=== PATIENT | male | born 1985 | race African-American/Black ===

== ENCOUNTER 2016-08-11 20:55 | Emergency (ER) | payer OTHER ==
[2016-08-11] MEDS ORDERED: FLEXERIL10 MG (21:12)
== END 2016-08-11 23:08 | disposition home or self-care (01) ==
LOC: SED 20:55
DX: S39.012A Strain of muscle, fascia and tendon of lower back, initial encounter (principal); M54.41 Lumbago with sciatica, right side; I10 Essential (primary) hypertension; F17.210 Nicotine dependence, cigarettes, uncomplicated; X58.XXXA Exposure to other specified factors, initial encounter; Y92.009 Unspecified place in unspecified non-institutional (private) residence as the place of occurrence of the external cause
CPT/HCPCS: 96372; 99283; J1885

== ENCOUNTER 2016-09-02 11:45 | Emergency (ER) | payer OTHER ==
[~2016-09-02 11:45] MED LIST: FLEXERIL10 MG
== END 2016-09-02 12:40 | disposition home or self-care (01) ==
LOC: SED 11:45
DX: M54.41 Lumbago with sciatica, right side (principal); I10 Essential (primary) hypertension; F17.200 Nicotine dependence, unspecified, uncomplicated
CPT/HCPCS: 96372; 99283; J1885; J2360

== ENCOUNTER 2016-09-10 10:38 | Emergency (ER) | payer OTHER ==
--- NOTE | ~2016-09-10 | MR113 ---
[facility] A Service of [facility] RADIOLOGY TEXT RESULTS PATIENT: LALITO ARREAGA LOCATION: SED : 83 UNIT #: [id number] AGE: [address]: CHANEL NUNEZ SEX: M ORDER DR: [id number] [place] [id number] E MR#: [id number] Acc #: [id number] NAME: LALITO ARREAGA. : 1985 SEX: M STUDY DATE/TIME: 09/10/2016 12:54 UNIT: SED ROOM: STUDY DESCRIPTION: MR Lumbar Wo Contrast Attending Physician: Chanel Nunez Ordering Physician: Chanel Nunez Primary Care Physician: Clara Primary Care Physician MRI CENTER REPORT This report is preliminary unless electronic signature is present. EXAM Lumbar spine MRI 09/10 INDICATIONS Increasing low back pain over the last 6 months with right lower extremity radiculopathy. Patient woke up today and could not move. No trauma. TECHNIQUE Axial and sagittal multi-sequence images were obtained through the lumbar spine without contrast in a high field strength magnet. COMPARISON STUDIES No comparison MRI. FINDINGS Lumbar alignment is normal. No subluxation is seen. There are no compression fractures. Bone marrow signal is normal. Conus terminates at L1 and is normal in caliber and signal intensity. At L5-S1, there is bilateral facet arthropathy. There is a posterior central and right paracentral disc protrusion. This appears to be contacting the right S1 nerve root. These findings combine to cause moderate right and mild left foraminal stenosis. At L4-5, there is bilateral facet arthropathy. There is a right paracentral and lateral disc herniation which is markedly narrowing the right neural foramen and probably contacting at least the right L5 root. At L3-4, the disc is normal. There is some mild facet arthropathy. There is no central canal or neural foraminal stenosis. The L2-3 and L1-2 discs are normal as well. The T12-L1 disc is normal on the sagittal images provided. [facility] A Service [facility] RADIOLOGY TEXT RESULTS PATIENT: LALITO ARREAGA LOCATION: SED : 84 UNIT #: [id number] AGE: [address]: CHANEL NUNEZ SEX: M ORDER DR: IMPRESSION 1. No fracture or subluxation. 2. At L5-S1, there is a right posterior central and paracentral disc protrusion which is probably at least contacting the right S1 root. 3. At L4-5, there is a right posterior disc herniation causing right-side foraminal narrowing and mass effect on at least the right L5 root. 4. Multilevel facet arthropathy. Additional findings as above. Dictated by... Isma Melton Jr., M.D. THIS IS AN ELECTRONICALLY VERIFIED REPORT Isma Melton Jr., M.D. at 09/11/2016 7:10 AM Kiki TD: 09/10/2016 18:10 JOB #: [id number] MRI [facility]ENTER REPORT Page 1 of 1
[2016-09-10] MEDS ORDERED: NO MEDICATIONS (10:43)
== END 2016-09-10 14:44 | disposition home or self-care (01) ==
LOC: SED 10:38
DX: M54.41 Lumbago with sciatica, right side (principal); R03.0 Elevated blood-pressure reading, without diagnosis of hypertension; I10 Essential (primary) hypertension; F17.210 Nicotine dependence, cigarettes, uncomplicated
CPT/HCPCS: 72148; 96372; 99284; J1885

== ENCOUNTER 2016-09-23 14:48 | Emergency (ER) | payer OTHER ==
[~2016-09-23] VITALS: Ht 190.5 cm; Wt 99.8 kg
[~2016-09-23 14:48] MED LIST changes: +NO MEDICATIONS
== END 2016-09-23 16:30 | disposition home or self-care (01) ==
LOC: CFTX 14:48 → CED 14:48 → CFTX 15:45
DX: M51.16 Intervertebral disc disorders with radiculopathy, lumbar region (principal); I10 Essential (primary) hypertension; F17.210 Nicotine dependence, cigarettes, uncomplicated
CPT/HCPCS: 96372; 99283; J1885